=== PATIENT | male | born 1980 | race Caucasian/White ===

== ENCOUNTER 2018-10-06 10:32 | Emergency (ER) | payer OTHER ==
[~2018-10-06] VITALS: Ht 180.3 cm; Wt 9.8 kg
[2018-10-06] MEDS ORDERED: GABA-531 PO (10:42)
[2018-10-06] MEDS ORDERED: LISI-661 PO (10:42)
[2018-10-06 13:44] VITALS: BP 163/95
[2018-10-06] MEDS ORDERED: ChlordiazePOXIDE HCL 25 MG CAPSULE PO ONE (14:15)
== END 2018-10-06 14:22 | disposition home or self-care (01) ==
LOC: EMS 10:35
DX: F10.10 Alcohol abuse, uncomplicated (principal); I10 Essential (primary) hypertension; Z79.899 Other long term (current) drug therapy; Y90.6 Blood alcohol level of 120-199 mg/100 ml
CPT/HCPCS: 36415; 99285; G0480